=== PATIENT | female | born 1950 | race Caucasian/White ===

== ENCOUNTER 2018-10-06 07:30 | Inpatient (IN) | payer OTHER ==
[~2018-10-06] VITALS: Ht 154.9 cm; Wt 68.0 kg
[2018-10-06] MEDS ORDERED: COZAAR50 MG (08:54)
[2018-10-06] MEDS ORDERED: MICROZIDE12.5 MG (08:55)
== END 2018-10-16 12:47 | disposition home or self-care (01) | DRG 743 ==
LOC: SURH 10-13 07:00 → OB/GYN 10-13 09:08 → O/R 10-13 09:08 → OB/GYN 10-13 14:38
PROVIDERS: Obstetrics & Gynecology
PROC: 0JQC0ZZ Repair Pelvic Region Subcutaneous Tissue and Fascia, Open Approach (ICD-10-PCS; 2018-10-13)
PROC: 0UQF0ZZ Repair Cul-de-sac, Open Approach (ICD-10-PCS; 2018-10-13)
PROC: 0UT97ZZ Resection of Uterus, Via Natural or Artificial Opening (ICD-10-PCS; principal; 2018-10-13 07:00)
DX: N81.3 Complete uterovaginal prolapse (principal); I10 Essential (primary) hypertension; D25.1 Intramural leiomyoma of uterus; D25.2 Subserosal leiomyoma of uterus